=== PATIENT | female | born 1965 | race Caucasian/White ===

== ENCOUNTER 2020-03-01 10:26 | Day surgery (SDC) | payer MEDICARE ==
[~2020-03-01 10:26] MED LIST: Sodium Chloride 0.9% 10 ML Syringe FLUSH PRN
[2020-03-01] MEDS: Lactated Ringers 1,000 ML IV SCH (11:55)
[2020-03-01] MEDS ORDERED: Midazolam 1 MG/ML 2 ML SDV ONE ×2 (12:59→13:00)
[2020-03-01] MEDS ORDERED: Propofol 200 MG/20 ML SDV ONE ×2 (12:59→13:00)
--- NOTE | 2020-03-01 13:01 | PCM.PN ---
- General Info Date of Service: 03/01/20 - Review of Systems Systems Review Comment:: 54-year-old female referred for colonoscopy. She has had a slight change in her bowel pattern. She also has a known history of carcinoid tumor of the appendix. She is medically stable to proceed today. Her recent history and physical is reviewed and no significant changes are noted. I have again discussed the proposed colonoscopy with the patient she agrees to proceed accepting risks. - Patient Data Vitals - Most Recent: Last Vital Signs Temp 97.5 F 03/01/20 12:01 Pulse Resp 18 03/01/20 12:01 BP 149/88 H 03/01/20 12:01 Pulse Ox 96 03/01/20 12:01 Weight - Most Recent: 127.006 kg Med Orders - Current: Current Medications Lactated Ringer's (Ringers, Lactated) 1,000 mls @ 125 mls/hr IV ASDIRECTED MARCIO Last Admin: 03/01/20 11:55 Dose: 125 mls/hr Documented by: Sodium Chloride (Saline Flush) 10 ml FLUSH ASDIRECTED PRN PRN Reason: Keep Vein Open Discontinued Medications Midazolam HCl (Versed 1 Mg/Ml) Confirm Administered Dose 2 mg .ROUTE .STK-MED ONE Stop: 03/01/20 13:00 Propofol (Diprivan 20 Ml) Confirm Administered Dose 400 mg .ROUTE .STK-MED ONE Stop: 03/01/20 13:00 Sepsis Event Note - Focused Exam Vital Signs: Vital Signs Temp Resp BP Pulse Ox 03/01/20 12:01 97.5 F 18 149/88 H 96 - Problem List Review Problem List Initiated/Reviewed/Updated: Yes - Assessment Assessment:: Change in bowel pattern History of carcinoid tumor of the appendix - Plan Plan:: Colonoscopy
--- NOTE | 2020-03-01 13:37 | PCM.OPNOTE ---
- General Post-Op/Procedure Note Date of Surgery/Procedure: 03/01/20 Operative Procedure(s): Colonoscopy Findings: Moderate sigmoid diverticulosis Colon otherwise normal Cecal area appears normal with no visible signs of recurrent carcinoid tumor Pre Op Diagnosis: Change in bowel habits. History of carcinoid of the appendix Post-Op Diagnosis: Sigmoid diverticulosis Anesthesia Technique: MAC Primary Surgeon: Rubio Lafleur Pathology: none EBL in mLs: 0 Complications: None Condition: Good
[2020-03-01 16:40] VITALS: BP 154/74; PULSE 64
--- NOTE | 2020-03-01 17:12 | OR ---
Date of Procedure: 03/01/2020 PREOPERATIVE DIAGNOSIS: Change in bowel habits. POSTOPERATIVE DIAGNOSIS: Sigmoid diverticulosis. OPERATIONS PERFORMED: Colonoscopy. INDICATIONS FOR SURGERY: This 54-year-old female has had a change in her bowel habits recently. It has been several years since her last colon exam. She also has a known history of a carcinoid tumor of the appendix. FINDINGS: The patient's colon appears normal with the exception of a moderate degree of diverticulosis in the sigmoid region. This does not appear to be acutely inflamed, or otherwise, complicated. The patient's cecum appears clear with no visible evidence of recurrent carcinoid in this area. DESCRIPTION OF PROCEDURE: The patient was taken to the operating room. She was given intravenous sedation, and with her in the left lateral decubitus position, digital rectal exam was performed showing no rectal masses. The Olympus colonoscope was inserted into the rectum. Retroflexed examination of the rectal canal was performed. The scope was then carefully advanced under direct visualization through the entire length of the colon until the cecum was reached. Cecal acquisition was confirmed by noting the normal internal cecal anatomy including the ileocecal valve. The cecum was carefully examined, and then, the scope was slowly withdrawn sequentially re-examining the colonic segments until the entire colon and rectum had been fully examined. The scope was removed and the patient was taken from the operating room in satisfactory condition. ESTIMATED BLOOD LOSS: Zero. COMPLICATIONS: None. PROGNOSIS: Good. INÉS Lafleur MD /[id number]
== END 2020-03-01 14:33 | disposition home or self-care (01) ==
LOC: LL.SDS 10:26
PROVIDERS: ATTEND Surgery
DX: K57.30 Diverticulosis of large intestine without perforation or abscess without bleeding (principal); M79.7 Fibromyalgia; M25.50 Pain in unspecified joint; I10 Essential (primary) hypertension; F33.1 Major depressive disorder, recurrent, moderate; D68.51 Activated protein C resistance; G89.29 Other chronic pain; G62.9 Polyneuropathy, unspecified; M54.9 Dorsalgia, unspecified; K21.9 Gastro-esophageal reflux disease without esophagitis; E66.9 Obesity, unspecified; E21.3 Hyperparathyroidism, unspecified; Z68.41 Body mass index [BMI] 40.0-44.9, adult; Z79.899 Other long term (current) drug therapy; Z98.890 Other specified postprocedural states; Z86.010 Personal history of colon polyps; Z88.5 Allergy status to narcotic agent; Z85.09 Personal history of malignant neoplasm of other digestive organs
CPT/HCPCS: J2250; J2704; J7120

== ENCOUNTER 2022-02-14 21:04 | Emergency (ER) | payer MEDICARE ==
[2022-02-14 21:21] VITALS: BP 161/71; PULSE 80
== END 2022-02-14 22:20 | disposition home or self-care (01) ==
LOC: LL.ED 21:04
DX: S82.46 Segmental fracture of shaft of fibula (principal); E78.00 Pure hypercholesterolemia, unspecified; I10 Essential (primary) hypertension; K21.9 Gastro-esophageal reflux disease without esophagitis; E66.9 Obesity, unspecified; Z68.30 Body mass index [BMI] 30.0-30.9, adult; Z88.5 Allergy status to narcotic agent; Z88.0 Allergy status to penicillin; Z88.8 Allergy status to other drugs, medicaments and biological substances; Z79.82 Long term (current) use of aspirin; Z79.899 Other long term (current) drug therapy; W01.0XXA Fall on same level from slipping, tripping and stumbling without subsequent striking against object, initial encounter; Y92.000 Kitchen of unspecified non-institutional (private) residence as the place of occurrence of the external cause
CPT/HCPCS: 73590-RT; 73630-RT; 99283

== ENCOUNTER 2023-02-01 16:39 | Emergency (ER) | payer MEDICARE, OTHER ==
[2023-02-01 16:58] VITALS: BP 155/79; PULSE 73
== END 2023-02-01 17:50 | disposition home or self-care (01) ==
LOC: LL.ED 16:39
DX: M76.62 Achilles tendinitis, left leg (principal); E78.00 Pure hypercholesterolemia, unspecified; K21.9 Gastro-esophageal reflux disease without esophagitis; I10 Essential (primary) hypertension; E66.9 Obesity, unspecified; Z88.5 Allergy status to narcotic agent; Z88.0 Allergy status to penicillin; Z88.8 Allergy status to other drugs, medicaments and biological substances; Z79.82 Long term (current) use of aspirin; Z79.899 Other long term (current) drug therapy; Z90.49 Acquired absence of other specified parts of digestive tract; Z90.710 Acquired absence of both cervix and uterus
CPT/HCPCS: 73610-LT; 99283